=== PATIENT | female | born 2000 | race Caucasian/White ===

== ENCOUNTER 2023-09-02 17:43 | Emergency (ER) | payer SELFPAY ==
[~2023-09-02] VITALS: Ht 170.2 cm; Wt 150.0 kg
[2023-09-02 18:28] VITALS: BP 161/96; PULSE 93; RESP 16; TEMP 98.6; O2SAT 96
== END 2023-09-02 21:21 | disposition left against medical advice (07) ==
LOC: ER 17:44
DX: R11.2 Nausea with vomiting, unspecified (principal); Z53.21 Procedure and treatment not carried out due to patient leaving prior to being seen by health care provider
CPT/HCPCS: 99281